=== PATIENT | male | born 1960 | race Caucasian/White ===

== ENCOUNTER 2017-09-07 14:49 | Inpatient (IN) | payer OTHER ==
[~2017-09-07] VITALS: Ht 177.8 cm; Wt 110.0 kg
[2017-09-07 15:11] LABS: EOSINOPHIL (%) 1.5 % (0-5); EOSINOPHIL COUNT 0.1 K/uL (0-0.3); HEMATOCRIT 43.1 % (38.0-50.0); IMMATURE GRANULOCYTE (%) 0.4 % (0.0-0.7); INSTRUMENT ABS NEUTROPHIL CT 5.9 K/uL; LYMPHOCYTE COUNT 2.6 K/uL (1.0-2.8); MCH 31.5 PG (29.0-34.0); MCHC 34.1 G/DL (30.0-36.0); MCV 92.3 FL (86-99); MEAN PLAT.VOLUME 11.4 uM^3 (9.0-12.4); MONOCYTE (%) 9.3 % (3-12); MONOCYTE COUNT 0.9 K/uL (0-0.8); NEUTROPHIL (%) 61.4 % (45-76); NEUTROPHIL COUNT 5.9 K/uL (1.8-6.4); PLATELET COUNT 186 K/uL (156-360); RBC DIS.WIDTH-CV 12.9 % (11.8-14.6); RBC DIS.WIDTH-SD 43.9 % (39-53); RED BLOOD COUNT 4.67 M/uL (4.00-5.50); WHITE BLOOD COUNT 9.6 K/uL (4.1-10.2)
[2017-09-07 15:20] LABS: AMYLASE 59 IU/L (1-118); CHLORIDE 104 mEq/L (99-109); POTASSIUM 3.9 mEq/L (3.7-5.4); SODIUM 137 mEq/L (136-147)
[2017-09-07 15:22] LABS: GLUCOSE 101 mg/dL (70-99)
[2017-09-07 15:23] LABS: ANION GAP 12 MEQ/L (2-14)
[2017-09-07 15:25] LABS: SERUM ETHYL ALCOHOL 41 mg/dL
[2017-09-07 15:26] LABS: GFR ESTIMATE (CALCULATED) > 59 mL/min/
[2017-09-07 15:27] LABS: UREA NITROGEN (BUN) 19 mg/dL (9-23)
[2017-09-07 15:29] LABS: LIPASE 14 U/L (1.0-51.0)
[2017-09-07 15:42] LABS: PROTHROMBIN TIME 11.4 SEC (10.2-12.9)
[2017-09-07 15:45] LABS: PTT 31.8 SEC (25-37)
[2017-09-07 15:53] LABS: TROP-I INTERPRETATION NEGATIVE; TROPONIN-I < 0.01 ng/mL (0.0-0.30)
[2017-09-07 17:39] LABS: ADD MIUA? NO; BILIRUBIN NEGATIVE; BLOOD NEGATIVE; COLOR YELLOW ((YELLOW)); GLUCOSE (STRIP) NEGATIVE; KETONES NEGATIVE; LEUKOCYTES NEGATIVE; NITRITE NEGATIVE; PROTEIN (STRIP) NEGATIVE; SPECIFIC GRAVITY 1.027 (1.000-1.030); UCUL ADDED? NO; UROBILINOGEN 0.2 MG/DL (0.2-1.0)
[2017-09-07] MEDS ORDERED: LYRICA200 MG PO (17:42)
[2017-09-07] MEDS ORDERED: SKELAXIN800 MG PO (17:42)
[2017-09-07] MEDS ORDERED: GLIPIZIDE XL5 MG PO (17:42)
[2017-09-07] MEDS ORDERED: XIFAXAN550 MG PO (17:42)
[2017-09-07] MEDS ORDERED: AMLODIPINE BESYL5 MG PO (17:42)
[2017-09-07] MEDS ORDERED: MOTRIN600 MG PO (17:42)
[2017-09-07] MEDS ORDERED: LOPRESSOR25 MG PO (17:43)
[2017-09-07 18:04] LABS: ADD MEDTOX COMMENT Y; AMPHETAMINE NEGATIVE (500 ng/mL); BARBITURATES NEGATIVE (200 ng/mL); BENZODIAZEPINES NEGATIVE (150 ng/mL); COCAINE PRESUMPTIVE POSITIVE (150 ng/mL); INTERNAL CONTROLS VALID? YES; METHADONE NEGATIVE (200 ng/mL); METHAMPHETAMINE NEGATIVE (500 ng/mL); OPIATES (MORPHINE) NEGATIVE (100 ng/mL); OXYCODONE NEGATIVE (100 ng/mL); PHENCYCLIDINE NEGATIVE (25 ng/mL); PROPOXYPHENE NEGATIVE (300 ng/mL); THC CANNABINOIDS PRESUMPTIVE POSITIVE (50 ng/mL); TRICYCLIC ANTIDEPRESSANTS NEGATIVE (300 ng/mL)
[2017-09-07 20:14] LABS: POINT-OF-CARE METER ID UU13113675
[2017-09-07 20:24] LABS: HEMATOCRIT 45.5 % (38.0-50.0); MCH 31.1 PG (29.0-34.0); MCV 94.4 FL (86-99); RED BLOOD COUNT 4.82 M/uL (4.00-5.50); WHITE BLOOD COUNT 11.9 K/uL (4.1-10.2)
[2017-09-07 21:30] VITALS: BP 122/76
[2017-09-07 21:31] VITALS: BP 122/76
[2017-09-07 21:34] LABS: MEAN PLAT.VOLUME 11.6 uM^3 (9.0-12.4); PLAT.SUFFICIENCY ADEQUATE; PLATELET COUNT 181 K/uL (156-360)
[2017-09-08 05:21] VITALS: BP 108/70
[2017-09-08 06:37] LABS: HEMATOCRIT 42.9 % (38.0-50.0); MCV 94.7 FL (86-99)
[2017-09-08 07:03] LABS: ANION GAP 9 MEQ/L (2-14); CHLORIDE 100 MEQ/L (99-109); GFR ESTIMATE (CALCULATED) > 59 mL/min/; GLUCOSE 107 mg/dL (70-99); SAMPLE HEMOLYSIS CHECK 0; SAMPLE ICTERIC CHECK 0; SAMPLE LIPEMIA CHECK 0; SODIUM 139 MEQ/L (136-147); UREA NITROGEN (BUN) 19 mg/dL (9-23)
[2017-09-08 07:46] VITALS: BP 101/65
[2017-09-08 11:31] VITALS: BP 137/82
[2017-09-08 15:24] VITALS: BP 123/85
[2017-09-08 19:20] VITALS: BP 119/76
[2017-09-08 23:22] VITALS: BP 129/75
[2017-09-09 03:22] VITALS: BP 110/79
[2017-09-09 06:51] LABS: HEMATOCRIT 39.1 % (38.0-50.0); MCV 94.9 FL (86-99)
[2017-09-09 07:29] VITALS: BP 116/76
[2017-09-09 16:16] VITALS: BP 126/84
[2017-09-09 23:25] VITALS: BP 110/74
[2017-09-10 08:13] VITALS: BP 125/76
[2017-09-10] MEDS ORDERED: LOVENOX40 MG/0.4 SC (13:40)
[2017-09-10] MEDS ORDERED: OXYCODONE HCL5 MG PO (13:41)
[2017-09-10] MEDS ORDERED: TYLENOL REGULA325 MG PO (13:41)
[2017-09-10 16:01] VITALS: BP 117/77
[2017-09-10 16:47] VITALS: BP 117/77
== END 2017-09-10 16:47 | disposition short-term general hospital (02) | DRG 465 ==
LOC: TRA 14:49 → 2SOUTH 19:57 → 3EAST 19:57 → ENRESERV 19:58 → 3EAST 21:09
PROVIDERS: Emergency Medicine; Orthopaedic Surgery
DX: S32.421A Displaced fracture of posterior wall of right acetabulum, initial encounter for closed fracture (principal); F10.129 Alcohol abuse with intoxication, unspecified; Y90.2 Blood alcohol level of 40-59 mg/100 ml; S81.021A Laceration with foreign body, right knee, initial encounter; W20.8XXA Other cause of strike by thrown, projected or falling object, initial encounter; F17.210 Nicotine dependence, cigarettes, uncomplicated; E11.9 Type 2 diabetes mellitus without complications; I10 Essential (primary) hypertension; K74.60 Unspecified cirrhosis of liver; I48.2 Chronic atrial fibrillation; F12.90 Cannabis use, unspecified, uncomplicated; Z96.642 Presence of left artificial hip joint; Z88.5 Allergy status to narcotic agent; Y92.009 Unspecified place in unspecified non-institutional (private) residence as the place of occurrence of the external cause; Z89.022 Acquired absence of left finger(s)
CPT/HCPCS: 70450; 71260; 72125; 72129; 72132; 72170; 73070; 73502; 73521; 73560; 73590; 74177; 76000; 80048; 81003; 82150; 82948; 83690; 84484; 84999; 85014; 85018; 85025; 85027; 85610; 85730; 86850; 86900; 86901; 93005; 99281; 99285; G0480; J0690; J1170; J1650; J2250; J2405; J3010